=== PATIENT | male | born 1990 | race Caucasian/White ===

== ENCOUNTER 2021-04-08 06:17 | Emergency (ER) | payer BC ==
[~2021-04-08] VITALS: Ht 170.2 cm; Wt 77.1 kg
[2021-04-08 06:44] LABS: ABSOLUTE RETIC COUNT 0.2755 10^6/uL; HEMATOCRIT 26.4 % (42.0-52.0); HEMOGLOBIN 8.8 gm/dL (14.0-18.0); MCH 26.9 pg (26.0-34.0); MCHC 33.5 g/dL (28.0-37.0); MCV 80.3 fL (80.0-100.0); OBSERVED RETIC COUNT 8.39 % (0.6-2.6); PLATELET COUNT 349 thou/uL (150-400); RBC 3.29 mil/uL (4.50-6.00); RDW 24.8 % (10.5-14.5); WBC 16.8 thou/uL (4.0-11.0)
[2021-04-08 06:49] LABS: ANION GAP 12 mmol/L (7-16); BUN 14 mg/dL (7-18); CALCIUM 8.9 mg/dL (8.5-10.1); CHLORIDE 105 mmol/L (98-107); CO2 26 mmol/L (21-32); CREATININE 0.7 mg/dL (0.7-1.3); GLUCOSE 135 mg/dL (74-106); POTASSIUM 4.1 mmol/L (3.5-5.1); SODIUM 143 mmol/L (136-145)
[2021-04-08 06:59] LABS: ALBUMIN 4.2 g/dL (3.4-5.0); SGOT 39 U/L (15-37); SGPT 32 U/L (30-65); TOTAL BILIRUBIN 4.4 mg/dL (0.2-1.0); TOTAL PROTEIN 8.2 g/dL (6.4-8.2); TROPONIN-I <0.06 ng/mL (<0.06)
[2021-04-08 07:45] LABS: DIRECT BILIRUBIN 0.6 mg/dL (<0.1-0.2); TOTAL BILIRUBIN 4.4 mg/dL (0.2-1.0)
[2021-04-08] MEDS ORDERED: MORPHINE SULFAT15 M3 PO (08:08)
[2021-04-08 08:21] VITALS: BP 126/66
[2021-04-08 08:52] LABS: ABSOLUTE NEUTROPHILS 9.6 thou/uL (1.4-8.2); MYELOCYTES 1 %; NUCLEATED RBCS 7 /100WBC
[2021-04-08 08:55] LABS: ANISOCYTOSIS 3+; POLYCHROMASIA SLIGHT
[2021-04-08 08:56] LABS: MACROCYTES 1+; MICROCYTES 1+; OVALOCYTES 1+
--- NOTE | 2021-04-08 09:06 | EKG ---
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
[2021-04-08] MEDS ORDERED: HYDREA 500 MG500 M1 PO (11:48)
== END 2021-04-08 08:34 ==
LOC: EDBD 06:17 → ER 06:17
PROVIDERS: Emergency Medicine
DX: D57.219 Sickle-cell/Hb-C disease with crisis, unspecified (principal)

== ENCOUNTER 2021-04-08 11:41 | Inpatient (IN) | payer BC, OTHER ==
[~2021-04-08] VITALS: Ht 167.6 cm; Wt 78.0 kg
[~2021-04-08 11:41] MED LIST: MORPHINE SULFAT15 M3 PO
[2021-04-08 11:43] VITALS: BP 140/76
[2021-04-08] MEDS ORDERED: HYDREA 500 MG500 M1 PO (11:48)
[2021-04-08 12:03] VITALS: BP 110/71
[2021-04-08 13:11] VITALS: BP 132/67
[2021-04-08 13:12] VITALS: BP 132/67
--- NOTE | 2021-04-08 13:14 | NUR ---
per dr trammell ok to give iv morphine q 4hours now due to pain.
[2021-04-08 13:34] VITALS: BP 110/49
[2021-04-08 14:05] VITALS: BP 129/75
--- NOTE | 2021-04-08 15:26 | NUR ---
ASSUMED PT CARE THIS AM. PT VSS, A&OX4. PATIENT ABLE TO MAKE NEEDS KNOWN. IV PATENT, FLUIDS INFUSING. REPORTS GENERALIZED PAIN, GAVE PAIN MEDS PER EMAR. PATIENT REPORTS BEING CONTINENT.
--- NOTE | 2021-04-09 05:48 | NUR ---
PT HAD CONTINUES CHRONIC PAIN PRN GIVEN SCHEDULED Q2HR AND PO GIVEN Q4H PAIN MANAGEMNET CONTROLLED,AND EFFECTIVE THRU NOC.PT IN BED URINAL USED THRU NOC
[2021-04-09 06:22] LABS: HEMATOCRIT 23.2 % (42.0-52.0); HEMOGLOBIN 7.9 gm/dL (14.0-18.0); MCH 27.2 pg (26.0-34.0); MCV 79.8 fL (80.0-100.0); PLATELET COUNT 284 thou/uL (150-400); RBC 2.91 mil/uL (4.50-6.00); RDW 24.5 % (10.5-14.5); WBC 20.6 thou/uL (4.0-11.0)
[2021-04-09 06:29] LABS: ABSOLUTE RETIC COUNT 0.2279 10^6/uL; OBSERVED RETIC COUNT 7.75 % (0.6-2.6)
[2021-04-09 06:55] LABS: ALBUMIN 3.5 g/dL (3.4-5.0); CALCIUM 8.2 mg/dL (8.5-10.1); CREATININE 0.5 mg/dL (0.7-1.3); MAGNESIUM 1.8 mg/dL (1.8-2.4); POTASSIUM 3.8 mmol/L (3.5-5.1); TOTAL BILIRUBIN 5.9 mg/dL (0.2-1.0)
[2021-04-09 07:55] VITALS: BP 115/62
[2021-04-09 09:12] LABS: ABSOLUTE NEUTROPHILS 14.4 thou/uL (1.4-8.2); ANISOCYTOSIS 2+; CORRECTED WBC 17.3 thou/uL (4.0-11.0); MICROCYTES 2+; NUCLEATED RBCS 19 /100WBC; PLATELET ESTIMATE NORMAL; POIKILOCYTOSIS 2+; POLYCHROMASIA 1+
--- NOTE | 2021-04-09 10:29 | NUR ---
ASSUMED PT CARE THIS AM. PT VSS, A&OX4. PATIENT ABLE TO MAKE NEEDS KNOWN. PATIENT REPORTS GENERALIZED PAIN, GIVING PAIN MEDS PER EMAR. PAIN MEDICATION REGIMIN ADJUSTED THIS AM BY PHYSICIAN. PATIENT IS ON ROOM AIR. TAKING PO AND IV MEDICATION WITHOUT ISSUE. IV PATENT, FLUIDS INFUSING. PATIENT HAS NO COMPLAINTS OF NUMBNESS, TINGLING, OR NAUSEA. PATIENT REMAINS CONTINENT AND IS USING THE URINAL WHEN NEEDED. CALL LIG IS WITHIN REACH.
--- NOTE | 2021-04-09 16:01 | NUR ---
PT ADMITTED RELATED TO SICKLE CELL CRISIS. CM REVIEWED CHART AND SPOKE WITH CARE TEAM. CM MET WITH PT AT BEDSIDE THIS DAY. PT APPERARED TO BE A&O X4. CM ROLE INTRODUCED. PT INDICATED HE RESIDES IN A SECOND STORY APT WITH A FRIEND. PT INDICATED HE HAD BEEN INDEPEDNENT WITH GAIT AND ADLS STEREOTYPER. PT INDICATED NO DME OR HH HX. PT INDICATED HE DOESN'T HAVE A PCP OR A HEMOTOLOGIST WHO HE SEES IN THE COMMUNITY AT THIS TIME. CM TO PROVIDE PT WITH RESOURSES FOR FOLLOW UP CARES. CM FOLLOWING REGARDING DC PLANNING.
[2021-04-09 16:10] VITALS: BP 118/64
[2021-04-09 19:15] VITALS: BP 134/72
--- NOTE | 2021-04-10 04:13 | NUR ---
patient aox4 makes needs known.pain controlled this shift. patient uses urinal at night.fall precaution in place. patient in bed asleep at this time breathing regular and unlaboured.
[2021-04-10 05:55] LABS: HEMOGLOBIN 6.8 gm/dL (14.0-18.0); MCH 27.5 pg (26.0-34.0); MCHC 35.4 g/dL (28.0-37.0); MCV 77.7 fL (80.0-100.0); RBC 2.47 mil/uL (4.50-6.00); RDW 24.4 % (10.5-14.5); WBC 17.2 thou/uL (4.0-11.0)
[2021-04-10 06:02] LABS: ABSOLUTE RETIC COUNT 0.2162 10^6/uL; OBSERVED RETIC COUNT 8.67 % (0.6-2.6)
[2021-04-10 06:04] LABS: PLATELET COUNT 190 thou/uL (150-400)
[2021-04-10 06:07] LABS: HEMATOCRIT 19.2 % (42.0-52.0)
[2021-04-10 06:23] LABS: ALBUMIN 3.1 g/dL (3.4-5.0); CALCIUM 8.1 mg/dL (8.5-10.1); CREATININE 0.5 mg/dL (0.7-1.3); MAGNESIUM 1.9 mg/dL (1.8-2.4); POTASSIUM 3.2 mmol/L (3.5-5.1); TOTAL BILIRUBIN 6.4 mg/dL (0.2-1.0); TOTAL PROTEIN 6.5 g/dL (6.4-8.2)
[2021-04-10 07:42] VITALS: BP 114/71
[2021-04-10 10:33] LABS: ABSOLUTE NEUTROPHILS 4.9 thou/uL (1.4-8.2); CORRECTED WBC 9.5 thou/uL (4.0-11.0); NUCLEATED RBCS 81 /100WBC
[2021-04-10 10:37] LABS: MACROCYTES 1+; POLYCHROMASIA 2+; TARGET CELLS FEW
[2021-04-10 10:38] LABS: ANISOCYTOSIS 2+
--- NOTE | 2021-04-10 12:45 | NUR ---
ASSUMED PT CARE THIS AM. PT VSS, A&OX4. PATIENT PLACED ON 2 LITERS OXYGEN VIA NC TO MAINTAIN A SATURATION OF 93%. PATIENT REMAINS CONTINENT AND USES THE URINAL WHEN NEEDED. ABLE TO MAKE NEEDS KNOWN. PATIENT WORKED WITH PHYSICAL THERAPY AND OCCUPATIONAL THERAPY TODAY, AMBULATED AROUND UNIT. CALL LIGHT WITHIN REACH. GIVING PATIENT PAIN MEDS NEEDED PER EMAR, REPORTING GENERALIZED PAIN.
[2021-04-10 15:30] VITALS: BP 138/67
--- NOTE | 2021-04-10 16:00 | NUR ---
CARE TEAM INDICATED THAT PT IS PROGRESSING TOWARD GOAL OF DISHCARGE AND THAT HE MAY BE MEDICALLY STABLE TO DC HOME TOMORROW. CM TO FOLLOW INDICATED WITH DC PLANNING. CM TO PROVIDE INFO FOR PCP UPON DC.
[2021-04-10 19:32] VITALS: BP 128/69
[2021-04-11 05:11] LABS: HEMOGLOBIN 6.7 gm/dL (14.0-18.0); MCH 27.4 pg (26.0-34.0)
[2021-04-11 05:13] LABS: MCHC 35.6 g/dL (28.0-37.0); RBC 2.45 mil/uL (4.50-6.00); RDW 26.4 % (10.5-14.5); WBC 20.3 thou/uL (4.0-11.0)
[2021-04-11 05:31] LABS: HEMATOCRIT 18.8 % (42.0-52.0)
--- NOTE | 2021-04-11 06:03 | NUR ---
Pt. has been awake most of the shift and c/o constant generalized pain. He has been medicated (see emar) with no relief to some relief of pain. Pt. has been drinking a large amount of water. Voiding per urinal.
[2021-04-11 07:47] VITALS: BP 128/78
[2021-04-11 08:49] LABS: URIC ACID* 2.5 mg/dL (3.5-7.2)
--- NOTE | 2021-04-11 11:40 | NUR ---
PT CONTINUES WITH UNCONTROLLED PAIN. PT GETTING BLOOD TODAY. PT WORKING WIHT PT. TRYING TO PROGRESS PT TO WORKING ON STEPS HE HAS 14 TO HIS APARTMENT. CM FOLLOWING REGARDING DC PLANNING.
--- NOTE | 2021-04-11 12:59 | NUR ---
ASSUMED PT CARE AROUND 0700. PT ALERT X ORIENTED X 4 . ON 2L/O2/NC. PT HAS SEVERE PAIN IN HIS BACK, HIPS. PAIN PARTIALLY CONTROLLED BY PAIN MEDICINE. IV LEFT AC/NS.150MLS/HR. STAND BY ASST TO BATHROOM. USES URINALS AT BEDSIDE. HAS AN OREDR FOR BLOOD TRANSFUSION. CALL LIGHT IN REACH. WILL CALL APPROPRIATELY. WILL CONTINUE TO MONITOR.
[2021-04-11 13:52] VITALS: BP 130/74; BP 134/68; BP 135/81
[2021-04-11 15:34] VITALS: BP 130/74
[2021-04-11 21:00] VITALS: BP 141/70
[2021-04-11 21:06] LABS: HEMATOLOGY COMMENTS Note: (()); HEMOGLOBIN 6.6 g/dL (13.0-17.7)
--- NOTE | 2021-04-12 05:32 | NUR ---
PT HAD PAIN X 2 THRU NOC. SCHEDULED PAIN GIVEN PRESCRIBED.IN BED URINAL USED. ALERT AND ORIENTATED X4
[2021-04-12 07:45] VITALS: BP 125/74
[2021-04-12 08:26] LABS: ABSOLUTE RETIC COUNT 0.2749 10^6/uL; HEMATOCRIT 20.8 % (42.0-52.0); HEMOGLOBIN 7.3 gm/dL (14.0-18.0); MCH 27.9 pg (26.0-34.0); MCHC 35.4 g/dL (28.0-37.0); MCV 78.9 fL (80.0-100.0); OBSERVED RETIC COUNT 10.45 % (0.6-2.6); RBC 2.63 mil/uL (4.50-6.00); RDW 26.2 % (10.5-14.5); WBC 19.3 thou/uL (4.0-11.0)
[2021-04-12 08:55] LABS: ALBUMIN 2.7 g/dL (3.4-5.0); CALCIUM 8.2 mg/dL (8.5-10.1); CREATININE 0.5 mg/dL (0.7-1.3); POTASSIUM 3.1 mmol/L (3.5-5.1); TOTAL BILIRUBIN 3.8 mg/dL (0.2-1.0); TOTAL PROTEIN 6.3 g/dL (6.4-8.2)
[2021-04-12] MEDS ORDERED: LEVOFLOXACIN500 MG PO (09:10)
[2021-04-12] MEDS ORDERED: HYDROCODON-ACE1 EAC7 PO (09:10)
[2021-04-12] MEDS ORDERED: HYDREA 500 MG500 M1 PO (09:16)
--- NOTE | 2021-04-12 10:36 | NUR ---
ASSUMED PT CARE THIS AM. PT VSS, A&OX4. PATIENT ABLE TO MAKE NEEDS KNOWN. REPORTS PAIN OF 7/10, WHEN REASSESSED AFTER GIVING PAIN MED PER EMAR, PAIN WAS A 6/10. IV PATENT, FLUIDS INFUSING. PATIENT REMAINS CONTINENT AND IS USING THE URINAL. PATIENT IS ON 2 LITERS OF OXYGEN VIA NC. PATIENT HAD NO ISSUES TAKING MORNING MEDS. CALL LIGHT IS WITHIN REACH. PATIENT IS REPORTING NO NUMBNESS, TINGLING, OR NAUSEA.
[2021-04-12 11:17] VITALS: BP 125/74
--- NOTE | 2021-04-12 11:48 | NUR ---
CARE TEAM INDICATED THAT PT IS MEDICALLY STABLE TO DISCHARGE HOME THIS DAY. CM PROVIDED PT WITH LIST OF PCPS HERE AT [facility]. PT HAD BEEN GIVEN CARD OF DR. PHILLIPS RUBBER COMPOUNDER SUPERVISOR OUT OF [facility]EARCH WHO SAW HIM HERE. PT TO FOLLOW UP WITH HIM UPON DISCHARGE. NO OTHER CM INTERVENTION INDICATED. CASE CLOSED.
== END 2021-04-12 13:25 | disposition home or self-care (01) | DRG 812 ==
LOC: ER 11:41 → EROBS 12:07 → 4W 12:07
PROVIDERS: Hospitalist; Internal Medicine Hematology & Oncology; ADMIT Internal Medicine; ATTEND Internal Medicine
PROC: 30233N1 Transfusion of Nonautologous Red Blood Cells into Peripheral Vein, Percutaneous Approach (ICD-10-PCS; principal; 2021-04-11)
DX: D57.00 Hb-SS disease with crisis, unspecified (principal); J98.11 Atelectasis; D72.829 Elevated white blood cell count, unspecified; D64.9 Anemia, unspecified; R09.02 Hypoxemia; E87.6 Hypokalemia; K76.9 Liver disease, unspecified; Z79.899 Other long term (current) drug therapy
CPT/HCPCS: 10040